=== PATIENT | male | born 1965 | race Caucasian/White ===

== ENCOUNTER 2017-10-02 22:38 | Emergency (ER) | payer BC ==
--- NOTE | 2017-10-03 03:05 | ER Document Report ---
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 Associated with nausea. And the daughter states that he also now feels confused talking things that not relevant. Has no focal weakness numbness tingling sensation. No history of any fever chills or other constitutional symptoms. - Related Data Allergies/Adverse Reactions: No Known Allergies Allergy (Verified 10/03/17 05:36) Past Medical History - Social History Smoking Status: Current Every Day Smoker Family History: None, Other - Hepatitis B Review of Systems - Review of Systems Notes: REVIEW OF SYSTEMS: CONSTITUTIONAL : Denies fever, chills, or sweats. Denies recent illness. EENT: Denies eye, ear, throat, or mouth pain or symptoms. Denies nasal or sinus congestion or discharge. Denies throat, tongue, or mouth swelling or difficulty swallowing. CARDIOVASCULAR: Denies chest pain. Denies palpitations or racing or irregular heart beat. Denies ankle edema. RESPIRATORY: Denies cough, cold, or chest congestion. Denies shortness of breath, difficulty breathing, or wheezing. GASTROINTESTINAL: Denies abdominal pain or distention. Denies nausea, vomiting , or diarrhea. Denies blood in vomitus, stools, or per rectum. Denies black, tarry stools. Denies constipation. GENITOURINARY: Denies difficulty urinating, painful urination, burning, frequency, blood in urine, or discharge. MUSCULOSKELETAL: Denies back or neck pain or stiffness. Denies joint pain or swelling. SKIN: Denies rash, lesions or sores. HEMATOLOGIC : Denies easy bruising or bleeding. LYMPHATIC: Denies swollen, enlarged glands. NEUROLOGICAL: Denies confusion or altered mental status. Denies passing out or loss of consciousness. Denies dizziness or lightheadedness. Denies headache. Denies weakness or paralysis or loss of use of either side. Denies problems with gait or speech. Denies sensory loss, numbness, or tingling. Denies seizures. PSYCHIATRIC: Denies anxiety or stress. Denies depression, suicidal ideation, or homicidal ideation. ALL OTHER SYSTEMS REVIEWED AND NEGATIVE. Dictation was performed using Dragon voice recognition software PHYSICAL EXAMINATION: GENERAL: Well-appearing, well-nourished and in no acute distress. HEAD: Atraumatic, normocephalic. EYES: Pupils equal round and reactive to light, extraocular movements intact, sclera anicteric, conjunctiva are normal. ENT: Nares patent, oropharynx clear without exudates. Moist mucous membranes. NECK: Normal range of motion, supple without lymphadenopathy LUNGS: Breath sounds clear to auscultation bilaterally and equal. No wheezes rales or rhonchi. HEART: Regular rate and rhythm without murmurs ABDOMEN: Soft, nontender, nondistended abdomen. No guarding, no rebound. No masses appreciated. Musculoskeletal: Normal range of motion, no pitting or edema. No cyanosis. NEUROLOGICAL: Cranial nerves grossly intact. Normal speech, normal gait. Normal sensory, motor exams PSYCH: Normal mood, normal affect. SKIN: Warm, Dry, normal turgor, no rashes or lesions noted. Physical Exam - Vital signs Vitals: Temp Pulse Resp BP Pulse Ox 98.9 F 99 16 129/83 H 95 10/02/17 23:33 10/02/17 23:33 10/02/17 23:33 10/02/17 23:33 10/02/17 23:33 Course - Re-evaluation Re-evalutation: 10/03/17 06:42 He is feeling much better sleeping calmly, lab reports and CT reports were reviewed after waking him up. - Vital Signs Vital signs: Temp Pulse Resp BP Pulse Ox 99.2 F 99 21 H 116/73 91 L 10/03/17 05:22 10/02/17 23:33 10/03/17 06:30 10/03/17 06:30 10/03/17 06:30 - Laboratory Result Diagrams: 10/03/17 03:35 10/03/17 03:35 Laboratory results interpreted by me: 10/03/17 10/03/17 10/03/17 03:35 03:35 03:35 Plt Count 79 L Seg Neutrophils % 81.7 H Lymphocytes % 6.1 L Glucose 113 H Urine Urobilinogen 2.0 H Discharge - Discharge Clinical Impression: Headache Sinusitis Qualifiers: Sinusitis location: maxillary Chronicity: acute Recurrence: not specified as recurrent Qualified Code(s): J01.00 - Acute maxillary sinusitis, unspecified Conjunctivitis Qualifiers: Conjunctivitis type: acute Acute conjunctivitis type: unspecified Laterality: right Qualified Code(s): H10.31 - Unspecified acute conjunctivitis, right eye Condition: Fair Disposition: HOME, SELF-CARE Instructions: Sinusitis ([facility]), Conjunctivitis, Allergic Prescriptions: Amoxicillin/Potassium Clav [Amox-Clav 875-125 mg Tablet] 1 each PO BID #20 tablet Tobramycin Sulf/Dexamethasone [Tobradex Eye Drops] 5 ml OP QID 7 Days drops.susp Trifluridine [Viroptic 1% Oph Soln 7.5 Ml Bottle] 1 drop IOS ANGELITO 7 Days bottle
--- NOTE | 2017-10-03 03:40 | RADIOLOGY REPORT (SQ) ---
EXAM DESCRIPTION: CT HEAD WITHOUT CLINICAL HISTORY: 52 years Male, confusion COMPARISON: None. TECHNIQUE: No contrast. This exam was performed according to our departmental dose-optimization program, which includes automated exposure control, adjustment of the mA and/or kV according to patient size and/or use of iterative reconstruction technique. FINDINGS: Brain parenchyma appears intact. No hemorrhage or infarct. No mass, mass effect, or midline shift. Extra-axial structures appear otherwise grossly intact. IMPRESSION: Normal CT of the head.
[2017-10-03 03:56] LABS: APPEARANCE,URINE CLEAR; BILIRUBIN,URINE NEGATIVE (NEGATIVE); GLUCOSE, URINE NEGATIVE (NEGATIVE); KETONES,URINE NEGATIVE (NEGATIVE); LEUKOCYTE ESTERASE,URINE NEGATIVE (NEGATIVE); NITRITE,URINE NEGATIVE (NEGATIVE); PROTEIN,URINE NEGATIVE (NEGATIVE); URINE SPECIFIC GRAVITY 1.025
[2017-10-03 04:02] LABS: ALANINE AMINOTRANSFERASE 36 U/L (21-72); ALBUMIN 4.1 g/dL (3.5-5.0); ALKALINE PHOSPHATASE 72 U/L (38-126); ANION GAP 11 (5-19); ASPARTATE AMINO TRANSFERASE 27 U/L (17-59); BILIRUBIN,DIRECT 0.2 mg/dL (0.0-0.4); BILIRUBIN,TOTAL 1.2 mg/dL (0.2-1.3); BLOOD UREA NITROGEN 10 mg/dL (7-20); CALCIUM 9.8 mg/dL (8.4-10.2); CARBON DIOXIDE 24 mmol/L (22-30); CHLORIDE 107 mmol/L (98-107); CREATININE RESULT 0.82 mg/dL (0.52-1.25); GLUCOSE 113 mg/dL (75-110); SODIUM 142.3 mmol/L (137-145); TOTAL PROTEIN 6.5 g/dL (6.3-8.2)
[2017-10-03 04:12] LABS: ABSOLUTE EOSINOPHILS # (AUTO) 0.1 10^3/uL (0.0-0.6); ABSOLUTE LYMPHOCYTES (AUTO) 0.5 10^3/uL (0.5-4.7); ABSOLUTE MONOCYTES (AUTO) 0.9 10^3/uL (0.1-1.4); ABSOLUTE NEUT (AUTO) 6.4 10^3/uL (1.7-8.2); BASOPHILS % (AUTO) 0.3 % (0-2); HEMATOCRIT 44.9 % (37.9-51.0); HEMOGLOBIN 15.9 g/dL (13.5-17.0); HGB HCT DIFFERENCE 2.8; LYMPHOCYTES % (AUTO) 6.1 % (13-45); MEAN CORPUSCULAR HEMOGLOBIN 32.5 pg (27.0-33.4); MEAN CORPUSCULAR HGB CONC 35.5 g/dL (32.0-36.0); MEAN CORPUSCULAR VOLUME 92 fl (80-97); MONOCYTES % (AUTO) 10.9 % (3-13); RED CELL DISTRIBUTION WIDTH 13.9 % (11.5-14.0); SEGMENTED NEUTROPHILS % (AUTO) 81.7 % (42-78); URINE BARBITURATES SCREEN NEGATIVE; URINE METHADONE SCREEN NEGATIVE; URINE OPIATES LOW NEGATIVE; URINE PHENCYCLIDINE SCREEN NEGATIVE; WHITE BLOOD COUNT 7.8 10^3/uL (4.0-10.5)
[2017-10-03] MEDS ORDERED: TETRACAINE HCL 0.5% OPH SOLN 2 ML OS ONE (04:51)
--- NOTE | 2017-10-03 05:35 | RADIOLOGY REPORT (SQ) ---
EXAM DESCRIPTION: CHEST SINGLE VIEW CLINICAL HISTORY: 52 years, Male, low O2 saturation COMPARISON: None. LIMITATIONS: None. FINDINGS: Adequate lung volume, clear parenchyma, normal cardiac silhouette. Intact bony thorax. IMPRESSION: Normal chest radiograph. 2011 [employer]- All Rights Reserved
[2017-10-03 06:37] VITALS: BP 116/73
== END 2017-10-03 07:00 | disposition home or self-care (01) ==
LOC: ER 22:38
DX: J01.00 Acute maxillary sinusitis, unspecified (principal); H10.31 Unspecified acute conjunctivitis, right eye; R51 Headache; R11.0 Nausea; R41.0 Disorientation, unspecified; F17.200 Nicotine dependence, unspecified, uncomplicated
CPT/HCPCS: 36415; 70450; 71010; 80048; 80076; 80307; 81001; 82140; 85025; 99284

== ENCOUNTER 2017-10-05 10:36 | Emergency (ER) | payer BC ==
--- NOTE | 2017-10-05 10:52 | ER Document Report ---
ED Medical Screen (RME) - General Chief Complaint: Flank Pain Stated Complaint: ABDOMINAL PAIN Time Seen by Provider: 10/05/17 10:49 Notes: Patient is complaining of pain in the flank regions bilaterally since about 2 AM this morning. It awakened him from sleep. He has had a history of a kidney stone in the past and this pain feels very similar to that pain. He has noted some darker urine lately, but not now. Patient says he is not nauseated and has not vomited but has had at least 10 episodes of diarrhea with the current symptoms. Had a fever of 100.9 last night. Patient also has a history of swelling in the sinuses and was seen here Saturday night and had a CT scan performed and was put on an antibiotic for sinus infection and eyedrops for eye infection. He does not feel they have improved although the swelling in the right maxillary region has gone away. Patient continues to have a cough and URI symptoms. PMH: Hepatitis B, GERD, denies alcohol, denies cigarettes. TRAVEL OUTSIDE OF THE [place] IN LAST 30 DAYS: No - Related Data Allergies/Adverse Reactions: No Known Allergies Allergy (Verified 10/05/17 10:36) Past Medical History - Social History Chew tobacco use (# tins/day): Yes - 0.5 tin/day Frequency of alcohol use: None Drug Abuse: None Renal/ Medical History: Denies: Hx Peritoneal Dialysis Physical Exam - Vital signs Vitals: Temp Pulse Resp BP Pulse Ox 98.6 F 83 16 127/85 H 98 10/05/17 10:40 10/05/17 10:40 10/05/17 10:40 10/05/17 10:40 10/05/17 10:40 Course - Vital Signs Vital signs: Temp Pulse Resp BP Pulse Ox 98.6 F 83 16 127/85 H 98 10/05/17 10:40 10/05/17 10:40 10/05/17 10:40 10/05/17 10:40 10/05/17 10:40
[2017-10-05 11:30] LABS: APPEARANCE,URINE CLEAR; BILIRUBIN,URINE NEGATIVE (NEGATIVE); GLUCOSE, URINE 150 mg/dL (NEGATIVE); KETONES,URINE NEGATIVE (NEGATIVE); LEUKOCYTE ESTERASE,URINE NEGATIVE (NEGATIVE); NITRITE,URINE NEGATIVE (NEGATIVE); PROTEIN,URINE NEGATIVE (NEGATIVE); URINE SPECIFIC GRAVITY 1.006; UROBILINOGEN,URINE NEGATIVE mg/dL (<2.0)
[2017-10-05 11:34] LABS: ABSOLUTE LYMPHOCYTES (AUTO) 0.5 10^3/uL (0.5-4.7); ABSOLUTE MONOCYTES (AUTO) 0.5 10^3/uL (0.1-1.4); BASOPHILS % (AUTO) 0.4 % (0-2); EOSINOPHILS % (AUTO) 0.9 % (0-6); HEMATOCRIT 45.9 % (37.9-51.0); HGB HCT DIFFERENCE 2.1; MEAN CORPUSCULAR HEMOGLOBIN 31.9 pg (27.0-33.4); MEAN CORPUSCULAR HGB CONC 34.9 g/dL (32.0-36.0); MEAN CORPUSCULAR VOLUME 92 fl (80-97); MONOCYTES % (AUTO) 10.2 % (3-13); RED CELL DISTRIBUTION WIDTH 13.8 % (11.5-14.0); SEGMENTED NEUTROPHILS % (AUTO) 78.5 % (42-78)
[2017-10-05 11:48] LABS: ALANINE AMINOTRANSFERASE 40 U/L (21-72); ALBUMIN 4.2 g/dL (3.5-5.0); ALKALINE PHOSPHATASE 62 U/L (38-126); ANION GAP 11 (5-19); ASPARTATE AMINO TRANSFERASE 32 U/L (17-59); BILIRUBIN,DIRECT 0.2 mg/dL (0.0-0.4); BILIRUBIN,TOTAL 0.7 mg/dL (0.2-1.3); BLOOD UREA NITROGEN 10 mg/dL (7-20); CALCIUM 9.2 mg/dL (8.4-10.2); CARBON DIOXIDE 30 mmol/L (22-30); CHLORIDE 98 mmol/L (98-107); CREATININE RESULT 0.72 mg/dL (0.52-1.25); GLUCOSE 139 mg/dL (75-110); LIPASE 462.8 U/L (23-300); POTASSIUM 3.8 mmol/L (3.6-5.0); SODIUM 138.5 mmol/L (137-145); TOTAL PROTEIN 7.1 g/dL (6.3-8.2)
[2017-10-05] MEDS ORDERED: KETOROLAC TROMETHAMINE 60 MG/2 ML SDV IM ONE (11:57)
--- NOTE | 2017-10-05 12:02 | ER Document Report ---
ED General - General Chief Complaint: Flank Pain Stated Complaint: ABDOMINAL PAIN Time Seen by Provider: 10/05/17 10:49 Mode of Arrival: Ambulatory Information source: Patient, Relative Notes: 52-year-old male history of hepatitis B recent diagnosis of cirrhosis as well as a kidney stone 10 years ago presents with bilateral flank pain that started this morning. Patient denies any fevers or chills denies any vomiting or diarrhea. Patient was seen here TRAVEL OUTSIDE OF THE [place] IN LAST 30 DAYS: No - HPI Onset: Just prior to arrival Onset/Duration: Sudden Quality of pain: Sharp Severity: Mild Pain Level: 1 Associated symptoms: None Exacerbated by: Denies Relieved by: Denies Similar symptoms previously: No Recently seen / treated by doctor: No - Related Data Allergies/Adverse Reactions: No Known Allergies Allergy (Verified 10/05/17 11:31) Home Medications: Current Home Medications Entecavir [Entecavir] 1 tab PO DAILY 10/05/17 [History] Ranitidine HCl 150 mg PO DAILY 10/05/17 [History] Past Medical History - Social History Smoking Status: Never Smoker Cigarette use (# per day): No Chew tobacco use (# tins/day): Yes - 0.5 tin/day Smoking Education Provided: No Frequency of alcohol use: None Drug Abuse: None Family History: None, Other - Hepatitis B Patient has suicidal ideation: No Patient has homicidal ideation: No Renal/ Medical History: Denies: Hx Peritoneal Dialysis Review of Systems - Review of Systems Notes: REVIEW OF SYSTEMS: CONSTITUTIONAL : Denies fever, chills, or sweats. Denies recent illness. EENT: Denies eye, ear, throat, or mouth pain or symptoms. Denies nasal or sinus congestion or discharge. Denies throat, tongue, or mouth swelling or difficulty swallowing. CARDIOVASCULAR: Denies chest pain. Denies palpitations or racing or irregular heart beat. Denies ankle edema. RESPIRATORY: Denies cough, cold, or chest congestion. Denies shortness of breath, difficulty breathing, or wheezing. GASTROINTESTINAL: Denies abdominal pain or distention. Denies nausea, vomiting , or diarrhea. Denies blood in vomitus, stools, or per rectum. Denies black, tarry stools. Denies constipation. GENITOURINARY: Denies difficulty urinating, painful urination, burning, frequency, blood in urine, or discharge. MUSCULOSKELETAL: Admits to bilateral flank pain. SKIN: Denies rash, lesions or sores. HEMATOLOGIC : Denies easy bruising or bleeding. LYMPHATIC: Denies swollen, enlarged glands. NEUROLOGICAL: Denies confusion or altered mental status. Denies passing out or loss of consciousness. Denies dizziness or lightheadedness. Denies headache. Denies weakness or paralysis or loss of use of either side. Denies problems with gait or speech. Denies sensory loss, numbness, or tingling. Denies seizures. PSYCHIATRIC: Denies anxiety or stress. Denies depression, suicidal ideation, or homicidal ideation. ALL OTHER SYSTEMS REVIEWED AND NEGATIVE. Dictation was performed using [employer] voice recognition software PHYSICAL EXAMINATION: GENERAL: Well-appearing, well-nourished and in moderate distress HEAD: Atraumatic, normocephalic. EYES: Pupils equal round and reactive to light, extraocular movements intact, sclera anicteric, conjunctiva are normal. ENT: Nares patent, oropharynx clear without exudates. Moist mucous membranes. NECK: Normal range of motion, supple without lymphadenopathy LUNGS: Breath sounds clear to auscultation bilaterally and equal. No wheezes rales or rhonchi. HEART: Regular rate and rhythm without murmurs ABDOMEN: Soft, nontender, nondistended abdomen. No guarding, no rebound. No masses appreciated. Musculoskeletal: Normal range of motion, no pitting or edema. No cyanosis. NEUROLOGICAL: Cranial nerves grossly intact. Normal speech, normal gait. Normal sensory, motor exams PSYCH: Normal mood, normal affect. SKIN: Warm, Dry, normal turgor, no rashes or lesions noted. Physical Exam - Vital signs Vitals: Temp Pulse Resp BP Pulse Ox 98.6 F 83 16 127/85 H 98 10/05/17 10:40 10/05/17 10:40 10/05/17 10:40 10/05/17 10:40 10/05/17 10:40 Course - Re-evaluation Re-evalutation: 10/05/17 16:41 Patient's presentation appears to be more consistent with a kidney stone, therefore patient was sent for a renal stone study recently been millimeter stone is noted inside the kidney with no stone in the ureter, there is no hydronephrosis noted, there is no obvious sign of cirrhosis either in the lab work notes no significant elevation of the liver enzymes. Patient was given a shot of Toradol and states her symptoms have completely resolved. I will discharge home with tramadol with very strict return precautions. Patient was given urology consult as well. Overall he looks well is in no distress and has been discussed extensively and has no questions After performing a Medical Screening Examination, I estimate there is LOW risk for ACUTE APPENDICITIS, BOWEL OBSTRUCTION, ACUTE CHOLECYSTITIS, PERFORATED DIVERTICULITIS, INCARCERATED HERNIA, PANCREATITIS, TESTICULAR TORSION or PERFORATED ULCER, thus I consider the discharge disposition reasonable. Also, there is no evidence or peritonitis, sepsis, or toxicity. I have reevaluated this patient multiple times and no significant life threatening changes are noted. The patient and I have discussed the diagnosis and risks, and we agree with discharging home with close follow-up with the understanding that symptoms and presentations can change. We also discussed returning to the Emergency Department immediately if new or worsening symptoms occur. We have discussed the symptoms which are most concerning (e.g., bloody stool, fever, changing or worsening pain, intractable vomiting - standard verbal up date) that necessitate immediate return. - Vital Signs Vital signs: Temp Pulse Resp BP Pulse Ox 98.6 F 78 15 116/72 97 10/05/17 10:40 10/05/17 15:26 10/05/17 15:26 10/05/17 15:26 10/05/17 15:26 - Laboratory Result Diagrams: 10/05/17 11:00 10/05/17 11:00 Laboratory results interpreted by me: 10/05/17 10/05/17 10/05/17 10:54 11:00 11:00 Plt Count 70 L Seg Neutrophils % 78.5 H Lymphocytes % 10.0 L Glucose 139 H Lipase 462.8 H Urine Glucose (UA) 150 H - Diagnostic Test Radiology reviewed: Image reviewed, Reports reviewed - Report given to patient Discharge - Discharge Clinical Impression: Flank pain, Nephrolithiasis Condition: Stable Disposition: HOME, SELF-CARE Instructions: Flank Pain ([facility]) Prescriptions: Tramadol HCl 50 mg PO Q8 #20 tablet Referrals: MARY DENNIS MD [ACTIVE STAFF] - Follow up in 3-5 days
--- NOTE | 2017-10-05 13:40 | RADIOLOGY REPORT (SQ) ---
EXAM DESCRIPTION: CT LTD RENAL STONE PROTOCOL ON COMPLETED DATE/TIME: 10/05/2017 1:19 pm REASON FOR STUDY: flank pain COMPARISON: None. TECHNIQUE: CT scan of the abdomen and pelvis performed without intravenous or oral contrast. Images reviewed with lung, soft tissue, and bone windows. Reconstructed coronal and sagittal MPR images revi ewed. All images stored on PACS. All CT scanners at this facility use dose modulation, iterative reconstruction, and/or weight based d osing when appropriate to reduce radiation dose to as low as reasonably achievable (ALARA). [facility]: Dose Right [facility]: CareDose [facility]: Dose Right [facility]: Teradose 4D [facility]: [employer] RADIATION DOSE: CT Rad equipment meets quality standard of care and radiation dose reduction techniq ues were employed. CTDIvol: 6.5 mGy. DLP: 358 mGy-cm.mGy. LIMITATIONS: None. FINDINGS: LOWER CHEST: No significant findings. No nodules or infiltrates. NON-CONTRASTED LIVER, SPLEEN, ADRENALS: Evaluation limited by lack of IV contrast. No identified sign ificant masses. PANCREAS: No masses. No peripancreatic inflammatory changes. GALLBLADDER: No identified stones by CT criteria. No inflammatory changes to suggest cholecystitis. RIGHT KIDNEY AND URETER: No suspicious masses. Assessment limited by lack of IV contrast. No signif icant calcifications. No hydronephrosis or hydroureter. LEFT KIDNEY AND URETER: No suspicious masses. Assessment limited by lack of IV contrast. 7 mm nonob structing calculus lower pole. No hydronephrosis or hydroureter. AORTA AND RETROPERITONEUM: No aneurysm. No retroperitoneal masses or adenopathy. BOWEL AND PERITONEAL CAVITY: No obvious masses or inflammatory changes. No free fluid. APPENDIX: Normal. PELVIS, BLADDER, AND ABDOMINAL WALL:Tiny fat containing periumbilical hernia. Postsurgical change re lated to bilateral inguinal hernia repair. No abnormal masses. No free fluid. Bladder normal. BONES: No significant findings. OTHER: No other significant finding. IMPRESSION: LEFT-SIDED NEPHROLITHIASIS WITHOUT LOWER URINARY TRACT STONES OR HYDRONEPHROSIS. COMMENT: Quality ID # [id number]: Final reports with documentation of one or more dose reduction techniques (e.g., Automated exposure control, adjustment of the mA and/or kV according to patient size, use of iterative reconstruction technique) TECHNICAL DOCUMENTATION: JOB ID: [id number]- All Rights Reserved
[2017-10-05 15:30] VITALS: BP 116/72
== END 2017-10-05 15:26 | disposition home or self-care (01) ==
LOC: ER 10:36
DX: N20.0 Calculus of kidney (principal); Z72.0 Tobacco use
CPT/HCPCS: 99284; 96372; 36415; 83690; 85025; 80053; 81001; 76380; J1885